=== PATIENT | male | born 1950 | race Caucasian/White ===

== ENCOUNTER → 2018-01-02 | Day surgery (SDC) | payer OTHER ==
[2017-12-30 15:45] VITALS: Ht 180.3 cm; Wt 141.4 kg
--- NOTE | 2018-01-01 08:16 | History and Physical ---
History & Physical Date Jan 01, 2018. Chief Complaint Patient presents as a 67-year-old white male with right shoulder pain he has a clinical examination is rotator cuff tear is been Nourse wants to conservative therapy including physical therapy anti-inflammatories relative rest activity modification presents for right shoulder arthroscopy with rotator cuff repair History of Present Illness The patient is a 67 year old male with complaints of Past Medical/Surgical History Medical Problems: (1) Diverticular disease of colon (2) Diverticulitis of colon (3) Essential hypertension (4) History of adenomatous polyp of colon (5) Morbid obesity (6) s/p arthroscopic surgery bilateral knees (7) s/p cholecystectomy (8) s/p colonoscopy (9) s/p ERCP (10) s/p right TKA (11) Sleep apnea Additional History Hepatic Disease: No Endocrine Disorder: No Kidney Disease: No Hypertension: No Heart Disease: No Bleeding Tendencies: No Infectious Diseases: No Other: History of sleep apnea utilizing a home CPAP Allergies Coded Allergies: BEE STING (Verified Allergy, Unknown, HIVES, 12/30/17) Cephalexin (Verified Allergy, Unknown, SEVERE SORES ON LEGS, 12/30/17) Home Medications Scheduled Amlodipine (Norvasc), 10 MG PO QAM Ascorbic Acid (Vitamin C), 500 MG PO QAM B-Complex W/ Folic Acid (Super B Complex Maxi), 1 TAB PO QAM Cetirizine (Zyrtec), 10 MG PO QAM Cholecalciferol (Vitamin D 1000 Unit), 1,000 INTER.UNIT PO QAM Ferrous Sulfate (Iron), 325 MG PO QAM Fluticasone Prop/Salmeterol (Advair Diskus 500/50 60 Dose), 1 PUFF INH BID Lisinopril (Prinivil), 40 MG PO QAM Sennosides-Docusate Sodium (Stool Softener), 1 TAB PO QAM Scheduled PRN Tramadol (Ultram), 50 MG PO Q6H PRN for RN Physical Examination Skin: warm/dry, no rash Eyes: normal inspection, EOMI, sclerae normal ENT: normal ENT inspection, pharynx normal Head: normocephalic, atraumatic Neck: supple, no adenopathy, trachea midline Respiratory/Chest: lungs clear, normal breath sounds, no respiratory distress Cardiovascular: regular rate, rhythm, no edema, no murmur Abdomen / GI: normal bowel sounds, non tender Back: normal inspection Extremities: + pertinent finding (patient presents with right shoulder rotator cuff tear for arthroscopic evaluation and fixation) Diagnosis Patient presents a very pleasant 59-year-old male with a full-thickness tear rotator cuff right shoulder fluoroscopic evaluation rotator cuff repair postoperative pain management sling immobilization rotator cuff physical therapy Plan of Treatment Plan is for right shoulder arthroscopy arthroscopic rotator cuff repair pain management DVT prophylaxis antibiotics physical therapy
[~2018-01-02] VITALS: Ht 180.3 cm; Wt 141.4 kg
[~2018-01-02] MED LIST: ADVIN50/60 INH; AMLO-114 PO; ASCO1CAP3 PO; ATROPINE SULFATE 0.1 MG/ML 5ML SYR IV PRN; B-CO-25 PO; CETI10TA84 PO; CHOL100027 PO; CLINDAMYCIN 600 MG/54 ML D5W IV ONE; CLINDAMYCIN PHOS 150 MG/ML 2 ML VIAL ONE; DEXAMETHASONE SOD INJ 4 MG/ML VIAL ONE; EpHEDrine SULFATE INJ 50 MG/ML AMP IV PRN; EpHEDrine SULFATE INJ 50 MG/ML AMP ONE; EpINEphrine HCL INJ 1 MG/ML 1ML SYRINGE ONE; FENTANYL CITRATE INJ 50 MCG/1 ML 2 ML VIAL IV PRN; FENTANYL CITRATE INJ 50 MCG/1 ML 2 ML VIAL ONE; FERR1TAB23 PO; LACTATED RINGER'S 1000ML 1,000 ML IV SCH; LIDOCAINE HCL 2% 2 ML VIAL (20MG/ML) ONE; LISI40TA PO; MIDAZOLAM HCL 1 MG/ML 2ML VIAL ONE; NURSING VERBAL MED ORDER STA; ONDANSETRON INJ 2 MG/ML 2 ML VIAL IV PRN; ONDANSETRON INJ 2 MG/ML 2 ML VIAL ONE; OXYC-57 PO; OXYCODONE/ACETAMINOPHEN 5-325 TAB PO PRN; PHENYLEPHRINE 100MCG/ML 5ML SYR ONE; PROPOFOL IV EMULSION 10 MG/ML 20 ML VIAL IV ONE; ROCURONIUM BROMIDE 10 MG/ML 5 ML VIAL IV ONE; ROPIVACAINE 0.5% 5 MG/ML 30 ML VIAL ONE; SENNTAB23 PO; SODIUM CHLORIDE 0.9% 1000ML 1,000 ML IV SCH; TRAM-10 PO
--- NOTE | 2018-01-02 07:13 | History & Physical Bridge Note ---
H&P Re-Evaluation Bridge Note: I have examined the patient, reviewed the History & Physical and in the interval since the performance of the History & Physical I have noted the following changes of clinical significance: No changes noted
[2018-01-02 09:19] VITALS: BP 160/86; PULSE 81; TEMP 36.6; O2SAT 99
--- NOTE | 2018-01-02 11:07 | [facility] Post Operative Brief Note ---
Immediate Operative Summary Operative Date Jan 02, 2018. Pre-Operative Diagnosis Full-thickness tear rotator cuff right shoulder Post-Operative Diagnosis Full-thickness tear rotator cuff right shoulder Procedure(s) Performed Right Shoulder Arthroscopy, Rotator Cuff Repair, Acromioplasty, Distal Clavicle Excision, Debridement of 50% Bicep Tear Surgeon Dr. Blaine Puentes Senior Caregiver Surgeon(s) Taqueria Manning PA-C Estimated Blood Loss 4ml Findings Consistent with Post-Op Diagnosis Specimens None per surgeon Drains None Anesthesia Type General Complication(s) none Disposition Disposition: Recovery Room / PACU
--- NOTE | 2018-01-02 11:10 | [facility] Operative Report ---
Operative Report Operative Date Jan 02, 2018. Pre-Operative Diagnosis Full-thickness tear rotator cuff right shoulder Post-Operative Diagnosis Full-thickness tear rotator cuff right shoulder acromioclavicular joint DJD subacromial impingement 50% tear biceps tendon Procedure(s) Performed Right Shoulder Arthroscopy, Rotator Cuff Repair, Acromioplasty, Distal Clavicle Excision, Debridement of 50% Bicep Tear Surgeon Dr. Blaine Puentes Linux System Admin Surgeon(s) Taqueria Manning PA-C Estimated Blood Loss 4ml Findings Patient presents with a full thickness tear rotator cuff 2 x 2 centimeters as well as a 50% tear biceps tendon and acromioclavicular joint DJD as well as is impingement syndrome large muscle conservative therapy Specimens None per surgeon Drains None Anesthesia Type General Complication(s) none Disposition Recovery Room / PACU Indications Patient presents with a full-thickness rotator cuff tear from the joint joint acromial clavicular joint DJD impingement syndrome nonresponse to conservative therapy rotator cuff tears and be 2 x 2 centimeters Description of Procedure After proper prepping draping the right shoulder region arthroscopic examination beginning in the region of the glenohumeral joint revealed any evidence of 50% tear and biceps tendon insertion is debrided to stable margin full-thickness rotator cuff tear measuring 2 x 2 centimeters noted be present in supraspinous tendon socially subacromial space was evaluated anterior- inferior crying flashers performed utilizing a bur distal clavicle excision performed removing 10 mm of distal clavicle utilizing a bur of the rotator cuff and mobilize repair back to bed of bleeding bone utilizing a double loaded heel coil 0.5 as well as a swivel lock anchor in a double row technique rotator cuff was completely repaired back to bed of bleeding bone was solid repair Lausier irrigated with copious amounts of sterile saline solution. Manner Bridges removed please note Taqueria DUKES was necessary for prepping draping retraction arm position suture management wound closure was necessary for the case I attest to the content of the Intraoperative Record and any orders documented therein. Any exceptions are noted below.
--- NOTE | 2018-01-02 11:24 | Discharge Instructions ---
Discharge Instructions Date of Service Jan 02, 2018. Visit Reason for Visit: Right Shoulder Complete Rotator Cuff Tear Discharge Discharge Diagnosis / Problem: right shoulder rotator cuff repair Discharge Goals Goal(s): Decrease discomfort, Improve function, Increase independence Activity Recommendations Activity Limitations: as noted below Shower/Bathe: keep incision dry Anesthesia . Post Anesthesia Instructions: If you have had General Anesthesia or IV Sedation: * Do not drive today. * Resume driving when surgeon permits. * Do not make important decisions or sign legal documents today. * Call surgeon for: 1. Temperature elevations greater than 101 degrees F. 2. Uncontrollable pain. 3. Excessive bleeding. 4. Persistent nausea and vomiting. 5. Medication intolerance (nausea, vomiting or rash). * For nausea and vomiting use only clear liquids such as: tea, soda, bouillon until nausea subsides, then gradually increase diet as tolerated. * If you have any concerns or questions, call your surgeon's office. If physician is unavailable and it is an emergency, call 911 or go to the nearest emergency room. . Instructions / Follow-Up Instructions / Follow-Up [facility] [place] INSTRUCTIONS: ROTATOR CUFF REPAIR SELF CARE INSTRUCTIONS A. You are permitted to loosen your sling/immobilizer to move your elbow, wrist , and hand to prevent stiffness. You should use your well arm (good arm) to assist the operated extremity when trying to raise the arm away from the body, hygiene purposes. Do NOT actively try to use/engage your shoulder muscles in operative arm at this time. You should NOT do overhead activity, lifting, or attempt to reach behind your back. B. You may/may not be instructed to start Physical Therapy upon discharge depending upon the size and difficulty of the repair. You will be provided a prescription for therapy with specific restrictions, if needed, at time of discharge. C. At 48 hours post-operatively, you may change your dressing. (Leave white steri-strips intact if present). Use band-aids and change daily. You are allowed to shower at this time and get the incision area wet, but DO NOT soak or submerge incision area in water. (No baths, swimming pools, hot tubs) D. Do NOT apply soap or any ointment/lotions directly over incision. E. You may use ice as needed to operative shoulder SPECIAL CARE INSTRUCTIONS: VERY IMPORTANT TO READ AND REVIEW A. There are a few signs you need to watch for after you are home. Call [facility] at [phone] if you experience any of the following: a. Increased severe shoulder pain. Some pain is expected especially when you exercise b. Increased swelling in your shoulder or arm; pain or swelling in either upper extremity. (Note: swelling and stiffness is normal and expected for several weeks post op, depending on type of shoulder surgery you had). c. Any fluid or drainage from the incision; redness of the incision. d. Shortness of breath or chest pain. B. Please call [facility] at [phone] if you have any questions or concerns about your operation or recovery. C. Call your physician if: a. Temperature is greater than 101 degrees (F). b. Pain is not relieved by prescribed pain medications. c. Increase drainage or redness from incision. d. Unanswered questions or concerns. D. Pain Medication: a. You will be prescribed pain medication upon discharge that should last till your first post-operative appointment. b. If you experience nausea and/or skin rash, discontinue this medication and contact our office for an alternative medication. c. Caution- narcotic pain medication can cause constipation. FOLLOW UP VISIT: Please call [facility] at [phone] to schedule a follow up appointment 10-14 days from your surgery date. Diet Recommendations Recommended Home Diet: no limitations Procedures Procedures Performed: Right Shoulder Arthroscopy, Rotator Cuff Repair, Acromioplasty, Distal Clavicle Excision, Debridement of 50% Bicep Tear Pending Studies Studies pending at discharge: no Medical Emergencies . Who to Call and When: Medical Emergencies: If at any time you feel your situation is an emergency, please call 911 immediately. . Non-Emergent Contact Non-Emergency issues call your: Primary Care Provider . . "Provider Documentation" section prepared by Taqueria Manning. . [place] Drug Monitoring Program Search Results: patient reviewed within database, no issues identified
--- NOTE | 2018-01-02 11:59 | Anesthesiology Progress Note ---
Anesthesia Post Op Note Date & Time Jan 02, 2018 at 11:59 Vital Signs Pain Intensity: 0 Vital Signs Past 12 Hours Date Time Temp Pulse Resp B/P (MAP) Pulse Ox O2 Delivery O2 Flow Rate FiO2 01/02/18 11:40 63 22 100 01/02/18 11:40 64 22 01/02/18 11:38 138/63 01/02/18 11:35 61 15 01/02/18 11:35 60 15 100 01/02/18 11:30 62 16 01/02/18 11:30 61 16 99 01/02/18 11:20 36.0 68 16 141/76 99 Oxymask 10 01/02/18 09:19 36.6 81 18 160/86 (110) 99 Room Air Notes Mental Status: alert / awake / arousable, participated in evaluation Pt Amnestic to Procedure: Yes Nausea / Vomiting: adequately controlled Pain: adequately controlled Airway Patency, RR, SpO2: stable & adequate BP & HR: stable & adequate Hydration State: stable & adequate Anesthetic Complications: no major complications apparent
[2018-01-02 12:22] VITALS: BP 128/58; PULSE 63; TEMP 36.4; O2SAT 96
[2018-01-02 12:47] VITALS: BP 135/69; PULSE 66; TEMP 36.5; O2SAT 96
== END | disposition home or self-care (01) ==
LOC: C.ACU 08:48
PROVIDERS: ATTEND Orthopaedic Surgery
DX: M75.101 Unspecified rotator cuff tear or rupture of right shoulder, not specified as traumatic (principal); M19.011 Primary osteoarthritis, right shoulder; M75.41 Impingement syndrome of right shoulder; S46.291A Other injury of muscle, fascia and tendon of other parts of biceps, right arm, initial encounter; X58.XXXA Exposure to other specified factors, initial encounter; I10 Essential (primary) hypertension; G47.33 Obstructive sleep apnea (adult) (pediatric); Z68.41 Body mass index [BMI] 40.0-44.9, adult; E66.01 Morbid (severe) obesity due to excess calories; Z96.651 Presence of right artificial knee joint; Z79.899 Other long term (current) drug therapy; Z90.5 Acquired absence of kidney; Z98.890 Other specified postprocedural states; Z98.49 Cataract extraction status, unspecified eye; Z90.49 Acquired absence of other specified parts of digestive tract; Z80.51 Family history of malignant neoplasm of kidney

== ENCOUNTER 2022-06-19 05:03 | Observation (INO) ==
--- NOTE | 2022-04-26 13:54 | PAT Medication Instructions ---
Medication Instructions Date of Service April 26, 2022 Home Medications lisinopril 40 mg tablet 40 mg PO DAILY@1200 amlodipine 10 mg tablet (Norvasc) 10 mg PO DAILY@1200 ascorbic acid (vitamin C) 500 mg tablet (Vitamin C) 500 mg PO DAILY@1200 cetirizine 10 mg tablet (Zyrtec) 10 mg PO QAM cholecalciferol (vitamin D3) 25 mcg (1,000 unit) tablet (Vitamin D3) 25 mcg PO DAILY@1200 docusate sodium 100 mg capsule (Colace) 100 mg PO DAILY@1200 ferrous sulfate 325 mg (65 mg iron) tablet 325 mg PO DAILY@1200 vitamin B complex 1 cap PO DAILY@1200 acetaminophen 500 mg tablet (Tylenol Extra Strength) 500 - 1,000 mg PO Q6H PRN albuterol sulfate 90 mcg/actuation aerosol inhaler 1 inh INHALATION QID PRN apixaban 5 mg tablet (Eliquis) 5 mg PO BID atenolol 25 mg tablet 25 mg PO DAILY@1200 lactobacillus comb no.10 20 billion cell capsule (Probiotic) 1 cell PO D AILY@1200 tramadol 50 mg tablet 50 mg PO Q8H PRN zinc 15 mg tablet 15 mg PO DAILY@1200 Continue as directed amlodipine 10 mg tablet (Norvasc) 10 mg PO DAILY@1200 atenolol 25 mg tablet 25 mg PO DAILY@1200 ASK your prescriber and surgeon apixaban 5 mg tablet (Eliquis) 5 mg PO BID (in order to get spinal anesthesia- will need to hold Eliquis/apixaban at least 72 hours prior to surgery) DO NOT take the morning of surgery lisinopril 40 mg tablet 40 mg PO DAILY@1200 ascorbic acid (vitamin C) 500 mg tablet (Vitamin C) 500 mg PO DAILY@1200 cetirizine 10 mg tablet (Zyrtec) 10 mg PO QAM cholecalciferol (vitamin D3) 25 mcg (1,000 unit) tablet (Vitamin D3) 25 mcg PO DAILY@1200 docusate sodium 100 mg capsule (Colace) 100 mg PO DAILY@1200 ferrous sulfate 325 mg (65 mg iron) tablet 325 mg PO DAILY@1200 vitamin B complex 1 cap PO DAILY@1200 lactobacillus comb no.10 20 billion cell capsule (Probiotic) 1 cell PO DAILY@1200 zinc 15 mg tablet 15 mg PO DAILY@1200 Take morning of surgery With a small sip of water, OTHERWISE NOTHING TO EAT OR DRINK AFTER MIDNIGHT: acetaminophen 500 mg tablet (Tylenol Extra Strength) 500 - 1,000 mg PO Q6H PRN (if needed) albuterol sulfate 90 mcg/actuation aerosol inhaler 1 inh INHALATION QID PRN (use if needed; please bring with you to hospital day of surgery if possible) tramadol 50 mg tablet 50 mg PO Q8H PRN (if needed) Take evening before surgery acetaminophen 500 mg tablet (Tylenol Extra Strength) 500 - 1,000 mg PO Q6H PRN (if needed) albuterol sulfate 90 mcg/actuation aerosol inhaler 1 inh INHALATION QID PRN (if needed) tramadol 50 mg tablet 50 mg PO Q8H PRN (if needed) Other Notes If you have any questions please call us at [phone] or [phone] or [phone] or [phone]
--- NOTE | 2022-04-27 12:43 | Anesthesiology Consultation ---
Date of Service April 27, 2022 Assessment & Plan (1) Encounter for pre-operative examination: - COVID screening: Per assessment on 04/27: No known COVID-19 positive contacts or current COVID-19 related symptoms. Travel screen negative. Patient reports not masking and is not vaccinated. Pt requiring admission post-operatively. Will plan for recheck with [facility] AM [facility] due to possibility that patient may have a roommate in addition to non-compliance with mask wearing in public. OR aware. [facility] order placed. - Eliquis instructions: patient made aware that in order for spinal anesthesia, Eliquis needs to be held 72 hours/3 days prior to surgery. Patient voiced understanding/will check if okay with prescriber. Chart Review Chart Review: Acceptable Risk for Surgery and Patient seen in Pre Admission Testing Teaching & Discussion Pre-Anesthesia Teaching/Discussion Notes: Instructed NPO after midnight before surgery,except medications with 15 cc of water. Medication instructions provided according to the PAT guidelines. History Surgery Operation Date: 05/30/22 08:55 Proposed Procedures p Left Total Knee Arthroplasty with possible Tibial Stem - Blaine Puentes DO Height/Weight Height: 5 ft 11 in Weight: 173.1 kg Allergies Allergy/AdvReac Type Severity Reaction Status Date / Time bee venom protein (honey bee) Allergy Unknown Hives Verified 04/27/22 12:35 cephalexin Allergy Unknown Severe Verified 04/27/22 12:35 sore legs Medications Home Medications Medication Instructions Recorded Confirmed Last Taken lisinopril 40 mg tablet 40 mg PO DAILY@1200 #0 tab 04/23/12 04/25/22 Unknown amlodipine 10 mg tablet (Norvasc) 10 mg PO DAILY@1200 #0 tab 12/30/17 04/25/22 Unknown ascorbic acid (vitamin C) 500 mg 500 mg PO DAILY@1200 #0 12/30/17 04/25/22 Unknown tablet (Vitamin C) cetirizine 10 mg tablet (Zyrtec) 10 mg PO QAM #0 tab 12/30/17 04/25/22 Unknown cholecalciferol (vitamin D3) 25 25 mcg PO DAILY@1200 #0 cap 12/30/17 04/25/22 Unknown mcg (1,000 unit) tablet (Vitamin D3) docusate sodium 100 mg capsule 100 mg PO DAILY@1200 #0 12/30/17 04/25/22 Unknown (Colace) ferrous sulfate 325 mg (65 mg 325 mg PO DAILY@1200 #0 12/30/17 04/25/22 Unknown iron) tablet vitamin B complex 1 cap PO DAILY@1200 #0 12/30/17 04/25/22 Unknown acetaminophen 500 mg tablet 500 - 1,000 mg PO Q6H PRN 04/25/22 04/25/22 Unknown (Tylenol Extra Strength) albuterol sulfate 90 mcg/actuation 1 inh INHALATION QID PRN 04/25/22 04/25/22 Unknown aerosol inhaler apixaban 5 mg tablet (Eliquis) 5 mg PO BID 04/25/22 04/25/22 Unknown atenolol 25 mg tablet 25 mg PO DAILY@1200 04/25/22 04/25/22 Unknown lactobacillus comb no.10 20 1 cell PO DAILY@1200 04/25/22 04/25/22 Unknown billion cell capsule (Probiotic) tramadol 50 mg tablet 50 mg PO Q8H PRN 04/25/22 04/25/22 Unknown zinc 15 mg tablet 15 mg PO DAILY@1200 04/25/22 04/25/22 Unknown Past Medical History Medical History Asthma Diverticulitis of colon Hx GERD (gastroesophageal reflux disease) r/t esophageal spasms Gluten intolerance Hearing deficit BL hearing aids History of COVID-19 Dx 2019 > extreme fatigue, loss taste/smell > resolved Hx of blood clots Reason on Eliquis d/t unprovoked blood clots in legs (3 years ago) Patient had 2 separate blood clots within 2 months of each other Hx of esophageal spasm About 20 years ago > no current issues Hx of iron deficiency anemia [place] r/t gluten intolerance, improvement in anemia with gluten avoidance Hx of renal cell carcinoma s/p resection of right kidney (7 years ago) No chemo or radiation Hypertension Osteoarthritis Sleep apnea Does not tolerate device Exercise / Class Metabolic Activity III < 4 Walking/Shop/Light housework Past Surgical History Surgical History H/O esophagogastroduodenoscopy History of cardiac cath 20 years ago - normal. Found out chest pain was coming from the Esophageal spasms. History of carpal tunnel release BL History of cataract surgery BL History of colonoscopy History of nephrectomy Right kidney d/t cancer PONV (postoperative nausea and vomiting) After femur fracture repair (nausea after this surgery d/t urgent surgery with recent food consumption) S/P Achilles tendon repair Left S/P cholecystectomy S/P hernia repair 3 total surgeries with 4 hernias repaired S/P nasal septoplasty Resulted in sleep apnea improvement S/P shoulder surgery Right Status post total right knee replacement Past Anesthesia History No Family Hx of Anesthesia Complications and Other (Awareness with right TKA) History of PONV No Hx of Motion Sickness and History of PONV (After femur fracture repair (nausea after this surgery d/t urgent surgery with recent food consumption)) Social History Smoking Status: Never smoker Do You Dip or Chew Tobacco: No Hx Alcohol Use: No Hx Substance Use: No Review of Systems Patient denies chest pain, shortness of breath, fever, chills, cough, wheezing, palpitations. Physical Exam Vital Signs VITALS BP 138/69 P 62 TEMP 98.2 SP02 96%RA RESP 16 PHYSICAL Full cervical extension range of motion. Full TMJ range of motion. TMD 3 finger breaths Mallampati Score 2 Dentition: full upper denture, several missing molars Lungs: clear throughout to auscultation Cardiac: regular rate and rhythm, no murmurs noted Spine: normal Carotid arteries: negative bruit Extremities: no edema Lab Results Anesthesia Preop Results Results Anesthesia Widget: PT 10.3 Seconds (9.0-12.0) 04/27/22 PTT 31.3 Seconds (21.0-31.0) H 04/27/22 INR 1.0 (0.9-1.1) 04/27/22 Blood Type A Positive 04/27/22 Antibody Screen NEGATIVE 04/27/22 Testing Laboratory Results 04/25/22 WBC 9.0 H/H 14.8/46.8 PLATELETS 227 SODIUM 141 POTASSIUM 4.5 CHLORIDE 104 CO2 25 BUN 19 CREATININE 1.1 GLUCOSE 108 TSH 2.82 HGBA1C 6.0% UA negative Electrocardiogram Date: 04/27/22 SR with first degree AVB at 61bpm. Otherwise normal ECG. *Poor data quality. Chest X-Ray Date: 04/27/22 FINDINGS: Lung volumes are normal. Linear left basilar opacity is unchanged and favor scarring or atelectasis. There is no pneumothorax or pleural effusion. Mild cardiomegaly is unchanged. Mediastinal contours are normal. There is no evidence for pulmonary edema. IMPRESSION: No acute cardiopulmonary findings. Cardiomegaly. Echocardiogram Date: 09/25/18 EF 50-55%. E/a reversal consistent with but not diagnostic for poor LV compliance. Mild RVD. Mild LAD. Mild RAD. No significant valvular disease. Stress Test Date: 12/30/18 Type: exercise 5.2 METS. 88% MPHR. Negative for ischemia by EKG criteria.
--- NOTE | 2022-05-29 14:41 | History & Physical Report ---
Date of Service May 29, 2022 date of surgery: 06/19/22 Procedure: Left Total Knee Arthroplasty with possible Tibial Stem Surgeon: Blaine Puentes Assessment & Plan (1) Arthritis of knee, left: Plan: Presents with continued left knee pain, he has failed prior cortisone inj, multiple visco injections as well as previous fluid flow injection without much relief. he has history of right TKA [place] [address] Puentes and would like to proceed with patient matched left TKA S&N at [facility] with poss tibial stem. will schedule for Iovera 2 weeks prior to surgery, will resume his Eliquis post-op. will need medical clearance prior to surgery. The risks and benefits have been discussed including, but not limited to, risk of infection, nerve injury, stiffness, loss of motion, failure to improve, etc. Reasonable outcomes and options of treatment were discussed. An explanation of appropriate alternatives to the procedure that may be advantageous were discussed and their risks and benefits, as well as the risks and benefits of not proceeding with treatment. I offered to answer any additional inquiries concerning the treatment involved. All the patient's questions were answered. The patient is agreeable, understanding of the treatment plan and alternatives, and wishes to proceed with the treatment plan. History of Present Illness Chief Complaint: left knee pain Primary Care Provider: NO PCP Florencio is a 71 year old male who complains of left knee pain, presents for pre- op evaluation prior to a left total knee replacement by Dr Puentes at [facility]. He complains of pain, decreased range of motion, instability and stiffness in his left knee. Currently the patient states that the symptoms are moderate-severe and is described as aching, sharp and throbbing. currently 7/10. His symptoms are aggravated by ascending stairs, daily activities, first steps while awake walking. He is currently on Eliquis and unable to take NSAIDs. He has been treated with previous cortisone, visco, and fluid flow injections in the past without much relief. He had his right knee replaced by Dr Puentes in 2011. Allergies Allergy/AdvReac Type Severity Reaction Status Date / Time bee venom protein (honey bee) Allergy Unknown Hives Verified 04/27/22 12:35 cephalexin Allergy Unknown Severe Verified 04/27/22 12:35 sore legs Home Medications Medication Instructions Recorded Confirmed Type lisinopril 40 mg tablet 40 mg PO DAILY@1200 #0 tab 04/23/12 04/25/22 History amlodipine 10 mg tablet (Norvasc) 10 mg PO DAILY@1200 #0 tab 12/30/17 04/25/22 History ascorbic acid (vitamin C) 500 mg 500 mg PO DAILY@1200 #0 12/30/17 04/25/22 History tablet (Vitamin C) cetirizine 10 mg tablet (Zyrtec) 10 mg PO QAM #0 tab 12/30/17 04/25/22 History cholecalciferol (vitamin D3) 25 25 mcg PO DAILY@1200 #0 cap 12/30/17 04/25/22 History mcg (1,000 unit) tablet (Vitamin D3) docusate sodium 100 mg capsule 100 mg PO DAILY@1200 #0 12/30/17 04/25/22 History (Colace) ferrous sulfate 325 mg (65 mg 325 mg PO DAILY@1200 #0 12/30/17 04/25/22 History iron) tablet vitamin B complex 1 cap PO DAILY@1200 #0 12/30/17 04/25/22 History acetaminophen 500 mg tablet 500 - 1,000 mg PO Q6H PRN 04/25/22 04/25/22 History (Tylenol Extra Strength) albuterol sulfate 90 mcg/actuation 1 inh INHALATION QID PRN 04/25/22 04/25/22 History aerosol inhaler apixaban 5 mg tablet (Eliquis) 5 mg PO BID 04/25/22 04/25/22 History atenolol 25 mg tablet 25 mg PO DAILY@1200 04/25/22 04/25/22 History lactobacillus comb no.10 20 1 cell PO DAILY@1200 04/25/22 04/25/22 History billion cell capsule (Probiotic) tramadol 50 mg tablet 50 mg PO Q8H PRN 04/25/22 04/25/22 History zinc 15 mg tablet 15 mg PO DAILY@1200 04/25/22 04/25/22 History Past Med/Surg History Medical History Asthma Diverticulitis of colon Hx GERD (gastroesophageal reflux disease) r/t esophageal spasms Gluten intolerance Hearing deficit BL hearing aids History of COVID-19 Dx 2020 > extreme fatigue, loss taste/smell > resolved Hx of blood clots Reason on Eliquis d/t unprovoked blood clots in legs (3 years ago) Patient had 2 separate blood clots within 2 months of each other Hx of esophageal spasm About 20 years ago > no current issues Hx of iron deficiency anemia [place] r/t gluten intolerance, improvement in anemia with gluten avoidance Hx of renal cell carcinoma s/p resection of right kidney (7 years ago) No chemo or radiation Hypertension Osteoarthritis Sleep apnea Does not tolerate device Surgical History H/O esophagogastroduodenoscopy History of cardiac cath 20 years ago - normal. Found out chest pain was coming from the Esophageal spasms. History of carpal tunnel release BL History of cataract surgery BL History of colonoscopy History of nephrectomy Right kidney d/t cancer PONV (postoperative nausea and vomiting) After femur fracture repair (nausea after this surgery d/t urgent surgery with recent food consumption) S/P Achilles tendon repair Left S/P cholecystectomy S/P hernia repair 3 total surgeries with 4 hernias repaired S/P nasal septoplasty Resulted in sleep apnea improvement S/P shoulder surgery Right Status post total right knee replacement Social History Smoking Status: Never smoker Second Hand Exposure: No; Hx Alcohol Use: No Hx Substance Use: No Preferred Language: Swedish Communication Ability: Effective Hospice Nurse Required: No Beliefs That Will Affect Care: None Current Living Situation: Spouse Feels Safe at Home: Yes Assistive Devices: BiPap, CPAP, Denture - Upper, Glasses and Hearing Aid - Bilateral Review of Systems Review of Systems: All systems reviewed & are unremarkable except as noted in HPI & below Constitutional: no fever, no chills and no sweats Respiratory: no cough and no dyspnea Cardiovascular: no chest pain, no dyspnea and no orthopnea Gastrointestinal: no abdominal pain, no nausea and no vomiting Musculoskeletal: as per Subjective / HPI Physical Exam Physical Exam: HT: 5ft 11in WT: 173.7kg Constitutional: WD/WN, vitals as above no acute distress Respiratory: normal respiratory effort, lungs clear to auscultation no respiratory distress, no labored breathing and does not use accessory muscles Cardiovascular: RRR, no murmur, no edema Gastrointestinal (Abdomen): normal bowel sounds, soft, nontender, no hepatosplenomegaly Musculoskeletal: Knee: + knee abnormal to inspection (LEFT KNEE), + effusion (+1 effusion), + limited ROM of knee (ROM 0/3/100), + knee ROM with crepitation, + joint line tenderness (medial joint line) and + Karissa's sign positive; no deformity, no skin erythema, no ecchymosis, no valgus laxity, no varus laxity, anterior drawer test negative, Charo's sign negative and pivot shift test negative Results & Data Results & Data ([facility]) Diagnostic Findings Left Knee X-ray: left knee series confirms degenerative changes to the left knee, greatest medial compartments and patellofemoral joint, showing joint space narrowing, osteophyte formation and subchondral sclerosis. no acute bony pathology noted.
[2022-06-19] MEDS ORDERED: ROPIVACAINE 0.5% HCL/PF 150 MG, BUPIVACAINE 0.75% MPF 20 ML, EPINEPHrine 30MG/30ML (OR ... INSTIL SCH (06:00)
[2022-06-19] MEDS ORDERED: METOCLOPRAMIDE HCL 10 MG TABLET PO SCH (06:00)
[2022-06-19] MEDS ORDERED: LR 500ML BOLUS, THEN 15ML/HR IV SCH (06:00)
[2022-06-19] MEDS ORDERED: dexAMETHasone 4 MG TAB PO SCH (06:00)
[2022-06-19] MEDS ORDERED: TRANEXAMIC ACID 1,000 MG **IV Pre-op IV SCH (06:00)
[2022-06-19] MEDS ORDERED: VANCOMYCIN HCL 2,000 MG in SODIUM CHLORIDE 0.9% 500 ML IV SCH (06:00)
[2022-06-19] MEDS ORDERED: FAMOTIDINE 20 MG TAB PO SCH (06:00)
[2022-06-19] MEDS ORDERED: ACETAMINOPHEN 500 MG TAB PO SCH (06:00)
[2022-06-19] MEDS ORDERED: GABAPENTIN 300 MG CAP PO SCH (06:00)
[2022-06-19] MEDS ORDERED: CeleBREX 200 MG CAP PO SCH (06:00)
[2022-06-19] MEDS ORDERED: TRANEXAMIC ACID 1,000 MG **IV Intra-op IV SCH (06:00)
[2022-06-19] MEDS ORDERED: ROPIVACAINE 0.5% 5 MG/ML 30 ML VIAL ONE (06:22)
[2022-06-19] MEDS ORDERED: EPINEPHrine INJ 1 MG/ML AMP ONE (06:22)
[2022-06-19] MEDS ORDERED: BUPIVACAINE 0.5 % 5 MG/1 ML PF 10ML VIAL ONE (06:22)
[2022-06-19] MEDS ORDERED: MIDAZOLAM HCL 1 MG/ML 2ML VIAL ONE ×2 (06:51→07:26)
[2022-06-19] MEDS ORDERED: fentaNYL citrate 100 MCG/2 ML VIAL ONE ×2 (06:51→07:57)
[2022-06-19] MEDS ORDERED: PROPOFOL IV EMULSION 10 MG/ML 20 ML VIAL IV ONE (06:51)
[2022-06-19] MEDS ORDERED: fentaNYL citrate 100 MCG/2 ML VIAL IV PRN (06:53)
[2022-06-19] MEDS ORDERED: LABETALOL HCL IV 5 MG/ML 20ML IV PRN (06:53)
[2022-06-19] MEDS ORDERED: ONDANSETRON INJ 2 MG/ML 2 ML VIAL IV PRN ×2 (06:53→09:11)
[2022-06-19] MEDS ORDERED: PHENYLEPHRINE 100MCG/ML 5ML SYR IV PRN (06:53)
[2022-06-19] MEDS ORDERED: ATROPINE SULFATE 0.1 MG/ML 10ML SYR IV PRN (06:53)
[2022-06-19] MEDS ORDERED: HYDROmorphone INJ 1 MG/ML SYRINGE IV PRN ×2 (06:53→09:11)
[2022-06-19] MEDS ORDERED: ePHEDrine sulfate 50 MG/ML AMP IV PRN (06:53)
[2022-06-19] MEDS ORDERED: ORTHO JOINT ANESTHETIC ONE (07:11)
--- NOTE | 2022-06-19 07:13 | History & Physical Bridge Note ---
Date of Service June 19, 2022 History & Physical Bridge Note I have examined the patient, reviewed the History & Physical and in the interval since the performance of the History & Physical I have noted the following changes of clinical significance: no changes noted
[2022-06-19] MEDS ORDERED: ePHEDrine sulfate 50 MG/ML SYR ONE (07:48)
--- NOTE | 2022-06-19 08:46 | Operative Report ---
Post Operative Report Pre & Post Diagnosis Operation Date: 06/19/22 07:15 Pre-Op Diagnosis: Left Knee Osteoarthritis with morbid obesity Post-Op Diagnosis: Left Knee Osteoarthritis with morbid obesity BMI 53.8 174 kg I identified the patient and participated in the time-out.: Yes Procedure Operation Date: 06/19/22 07:15 Actual Procedures p Left Total Knee Arthroplasty with Tibial Stem(Left) utilizing [employer] NephRestoMesto jouralice 2 patient matched total knee arthroplasty size femur 6 tibia 5 with 70 mm stem polyten patella 35- Blaine Puentes DO Surgeon Blaine Puentes DO Steel Post Installer ROSELINE Norton Estimated Blood Loss 10 Findings Consistent with Post-Op Diagnosis Patient presents with severe end-stage tricompartmental degenerative joint disease no response to conservative management for left total knee arthroplasty patient is got eburnated bone on bone subchondral sclerosis marginal osteophytes with cartilage loss and a moderate to large effusion Specimens Bone and cartilage Drains Medium bore Hemovac Anesthesia Type MAC Spinal Regional Complications none Disposition Accompanied Patient To Recovery: No Disposition: Recovery Room Indications Patient presents with severe end-stage tricompartmental DJD failed attempted conservative management clinic physical therapy anti-inflammatories relative rest activity modification corticosteroid injection viscosupplementation above intraoperative findings were noted Description of Procedure After proper prepping and draping of the left lower extremity anterior midline incision was made over the region of the extensor extensor mechanism after meticulous hemostasis was obtained and maintained in subcutaneous tissues a medial parapatellar incision was made The patella was subluxed lateralward the medial lateral gutter were cleaned from any hypertrophic synovitis and scar tissue of the distal femoral block was placed and the distal femoral osteotomy cut was made subsequently the chamfers anterior and posterior osteotomy cuts were made utilizing the 4-in-1 block the tibia was subsequently subluxed anteriorward medial and ateral meniscal remnants were excised in their entirety remnants of the anterior and posterior cruciate ligaments were excised in their entirety excellent exposure of the proximal tibia was obtained the tibial osteotomy guide was placed on the proximal tibial osteotomy cut was made once again the knee was irrigated with copious amounts of sterile saline solution the patella was subsequently everted lateralward thickened scar tissue around the patella was removed the patella was subsequently cut utilizing a freehand technique and was drilled prepared for final preparation and placement of gregory lla socially flexion-extension gaps were checked and the equal and symmetric trials were placed to the appropriate femoral and tibial trials with poly-spacer being placed for equal flexion and extension gaps and full range of motion including extension to 0 and flexion to 140 the trial components after having been taken to recovery range of motion was subsequently removed meticulous hemostasis was obtained and maintained subsequently a knee block injection of joint cocktail including ropivacaine 0.5% 150 mg. Bupivacaine 0.5% epinephrine 1-200,030 mL's toradol 30 mg dexamethasone 4 mg ketamine 10 mg clonidine 100 micrograms normal saline solution 30 mg was infiltrated into the soft tissues of the posterior knee medial lateral gutters and periosteal synovium special attention was paid to protect neurovascular structures at all times subsequently trial components having been removed the knee was irrigated with sterile saline solution. debris was removed the proximal tibia was subsequently prepared and was made ready for the placement of the tibial component tibial component was also cemented and tamped into position the femoral component was subsequently placed and cemented in the position the patellar component was subsequently cemented in position because hemostasis once again obtained and maintained wound having been thoroughly irrigated with debridement and debridement lavage was performed as well as a medial parapatellar incision closed with #1 Vicryl in interrupted fashion subcutaneous was closed with #2 Vicryl skin was closed with skin clips. PA-C was necessary for prepping and drapping as well as wound closure of deep fascia Sub cutaneous tissue and skin and was necessary for the case. A sterile compressive dressing was placed patient was taken to recovery in stable condition of report dictated by Dhaval I attest to the content of the Intraoperative Record and any orders documented therein. Any exceptions are noted below.Due to the complex nature of the procedure, the entire surgery was performed with the operational assistance of Phong Norton patient is 1 7 4 kg with a BMI 53.8. The patient's habitus did contribute to significant technical difficulty requiring extra time. Additional help was necessary in order to position the patient safely. The use of specialized (longer, deeper) retractors and/or instruments were needed. Due to this, the procedure took 20 minutes longer than the standard total knee arthroplasty."]. The assistant manager retail, under direct supervision, was involved in the actual performance of all aspects of the surgical procedure including hemostasis, tissue retraction and incision, instrument management, patient positioning, and wound closure. I attest to the content of the Intraoperative Record and any orders documented therein. Any exceptions are noted below.
[2022-06-19] MEDS ORDERED: ONDANSETRON INJ 2 MG/ML 2 ML VIAL ONE (09:00)
[2022-06-19] MEDS ORDERED: bisacodyL 10 MG SUPP PR PRN (09:11)
[2022-06-19] MEDS ORDERED: MAGNESIUM HYDROXIDE SUSP 30 ML UDC PO PRN (09:11)
[2022-06-19] MEDS ORDERED: NALOXONE HCL 0.4 MG/1 ML VIAL/CARP IV PRN (09:11)
[2022-06-19] MEDS ORDERED: diphenhydrAMINE Capsule 25 MG CAP PO PRN (09:11)
[2022-06-19] MEDS ORDERED: METOCLOPRAMIDE HCL INJ 5 MG/ML 2 ML VIAL IV PRN (09:11)
--- NOTE | 2022-06-19 09:32 | Anesthesiology Progress Note ---
Date of Service June 19, 2022 Anesthesia Post Procedure Vital Signs Vital Signs: Temp Pulse Pulse Resp BP BP Pulse Ox 06/19/22 09:25 66 17 142/63 H 96 06/19/22 09:15 69 17 159/61 H 98 06/19/22 09:09 36.0 C L 67 20 162/67 H 97 06/19/22 05:58 36.8 C 80 20 140/88 95 O2 Del Method 06/19/22 09:25 Room Air 06/19/22 09:15 Room Air 06/19/22 09:09 Room Air 06/19/22 05:58 Room Air Pain Intensity Left Knee: Pain Intensity: 1 Transfer of Care Handoff Completed per policy Notes Mental Status: alert / awake / arousable Patient Amnestic to Procedure: Yes Nausea / Vomiting: adequately controlled Pain: adequately controlled Airway Patency, RR, SpO2: stable & adequate BP & HR: stable & adequate Hydration State: stable & adequate Neuraxial Anesthesia: was administered and sensory block is resolving Anesthetic Complications: no major complications apparent and Pt Satisfied with anesthetic care
[2022-06-19] MEDS ORDERED: ALBUTEROL HFA 8 GM INHALER INH PRN (09:48)
[2022-06-19] MEDS: SODIUM CHLORIDE 0.9% 1000ML 1,000 ML IV SCH ×2 (09:52→20:18)
--- NOTE | 2022-06-19 10:25 | XRay Report ---
XR knee LT 1 or 2V routine CLINICAL HISTORY: Postoperative evaluation. COMPARISON: None FINDINGS: Alignment of the total left knee arthroplasty is anatomic. There is no periprosthetic frac ture or unexpected radiopaque foreign body. There are skin fariba. Surgical drains are in place. IMPRESSION: Expected findings following total left knee arthroplasty. ACT 112: Negative or not required by law. Electronically signed by: Philip Plummer M.D. 06/19/2022 10:24 AM
[2022-06-19] MEDS: ZINC SULFATE 220 MG CAPSULE PO SCH (11:48)
[2022-06-19] MEDS: FERROUS SULFATE 325 MG TAB PO SCH (11:49)
[2022-06-19] MEDS: ADVANCED PROBIOTIC 1250 MG CAPSULE PO SCH (11:49)
[2022-06-19] MEDS: lisinopril 40 MG TAB PO SCH (11:49)
[2022-06-19] MEDS: VITAMIN B COMPLEX TAB PO SCH (11:49)
[2022-06-19] MEDS: ASCORBIC ACID 500 MG TAB PO SCH (11:50)
[2022-06-19] MEDS: oxyCODONE HCL IR 5 MG TAB (IMMEDIATE RELEASE) PO PRN (11:50)
[2022-06-19] MEDS: amLODIPine BESYLATE 5 MG TAB PO SCH (11:50)
[2022-06-19] MEDS: CHOLECALCIFEROL 1,000 UNITS 25 MCG TAB PO SCH (11:50)
[2022-06-19] MEDS: ATENOLOL 25 MG TABLET PO SCH (11:50)
[2022-06-19] MEDS ORDERED: DOCUSATE SODIUM 100 MG CAP PO SCH (12:00)
[2022-06-19] MEDS: ACETAMINOPHEN 500 MG TAB PO SCH ×2 (13:31→21:33)
[2022-06-19] MEDS: CLINDAMYCIN 600 MG in DEXTROSE 5% 50 ML IV SCH (16:14)
[2022-06-19] MEDS ORDERED: SENNA 8.6 MG TAB PO SCH (21:00)
[2022-06-19] MEDS: DOCUSATE SODIUM 100 MG CAP PO SCH (21:33)
[2022-06-20] MEDS: CLINDAMYCIN 600 MG in DEXTROSE 5% 50 ML IV SCH (00:36)
[2022-06-20] MEDS: ACETAMINOPHEN 500 MG TAB PO SCH (06:10)
[2022-06-20 06:14] LABS: Hematocrit (blood only) 39.5 % (40.1-51.0); Hemoglobin 12.9 g/dl (14.0-18.0); Mean Corpuscular Hemoglobin 28.5 pg (25.0-34.0); Mean Corpuscular Hgb Conc 32.7 g/dL (32.0-36.0); Mean Corpuscular Volume 87.2 fL (80.0-100.0); Mean Platelet Volume 11.6 fL (9.4-12.4); Platelet Count 193 K/uL (130-400); RDW Coefficient of Variation 14.3 % (11.5-14.5); Red Blood Count 4.53 M/uL (4.63-6.08)
[2022-06-20 06:48] LABS: BUN Creatinine Ratio 22.1 (10-20); Calcium 8.4 mg/dl (8.5-10.1); Creatinine Clr Calc Pharmacy 114.5 ml/min; Est GFR (African American) 92.3 ml/min; Est GFR (Non-African American) 79.7 ml/min; Potassium 4.2 mmol/L (3.5-5.1)
--- NOTE | 2022-06-20 07:26 | Orthopedic Progress Note ---
Date of Service June 20, 2022 Assessment & Plan (1) Arthritis of knee, left: Plan: Postop day #1 left total knee -PT/OT -DVT prophylaxis SCDs, teds, Eliquis 5 mg twice daily -Pain management as written -AM labs as above -Discharge planning plan on discharge home with outpatient therapy likely today as long as does well with PT. Admission and Anticipated Discharge Date Admission Date: June 19, 2022 Subjective Patient is postop day 1 left total knee. He is doing well this morning. Pain is minimal. No other complaints. Review of Systems Review of Systems: All systems reviewed & are unremarkable except as noted in Subjective Physical Exam Physical Exam: Left knee: Dressing is clean, dry, intact. No calf tenderness. Toes mobile with good dorsiflexion. Distal neurovascular status and sensation intact. Constitutional: WD/WN, vitals as above Results & Data ([facility]) Vital Signs (Past 12 Hours) Vital Signs Temp Pulse Resp BP Pulse Ox O2 Del Method 06/20/22 07:21 36.5 C 62 16 162/72 H 93 Room Air 06/20/22 04:10 36.4 C L 51 L 16 157/74 H 96 06/19/22 21:22 36.6 C 56 L 18 149/78 H 95 Laboratory Results Lab Results 06/19/22 06/20/22 06/20/22 Range/Units 05:24 05:58 05:58 WBC 15.80 H (4.8-10.8) K/ul RBC 4.53 L (4.63-6.08) M/uL Hgb 12.9 L (14.0-18.0) g/dl Hct 39.5 L (40.1-51.0) % MCV 87.2 (80.0-100.0) fL MCH 28.5 (25.0-34.0) pg MCHC 32.7 (32.0-36.0) g/dL RDW Std Deviation 46.0 (36.4-46.3) fL RDW Coeff of [place] 14.3 (11.5-14.5) % Plt Count 193 (130-400) K/uL MPV 11.6 (9.4-12.4) fL Sodium 137 (136-145) mmol/L Potassium 4.2 (3.5-5.1) mmol/L Chloride 106 (98-107) mmol/L Carbon Dioxide 24 (21-32) mmol/L Anion Gap 7 (3-11) BUN 21 (6-23) mg/dl Creatinine 0.95 (0.6-1.4) mg/dl Est Cr Clr Drug Dosing 114.5 ml/min Est GFR ( Amer) 92.3 ml/min Est GFR (Non-Af Amer) 79.7 ml/min BUN/Creatinine Ratio 22.1 H (10-20) Glucose 130 H (70-99(Fasting)) mg/dl Calcium 8.4 L (8.5-10.1) mg/dl SARS-CoV-2, RNA, NAAT NEGATIVE (NEGATIVE)
[2022-06-20] MEDS: DOCUSATE SODIUM 100 MG CAP PO SCH (08:39)
[2022-06-20] MEDS: oxyCODONE HCL IR 5 MG TAB (IMMEDIATE RELEASE) PO PRN ×2 (08:40→13:03)
[2022-06-20] MEDS ORDERED: MULTIVITAMIN TAB PO SCH (09:00)
[2022-06-20] MEDS ORDERED: CETIRIZINE HCL 10 MG TABLET PO SCH (09:00)
[2022-06-20] MEDS ORDERED: APIXABAN 5 MG TABLET PO SCH (09:00)
[2022-06-20] MEDS: CHOLECALCIFEROL 1,000 UNITS 25 MCG TAB PO SCH (11:41)
[2022-06-20] MEDS: VITAMIN B COMPLEX TAB PO SCH (11:42)
[2022-06-20] MEDS: ATENOLOL 25 MG TABLET PO SCH (11:42)
[2022-06-20] MEDS: ASCORBIC ACID 500 MG TAB PO SCH (11:43)
[2022-06-20] MEDS: FERROUS SULFATE 325 MG TAB PO SCH (11:43)
[2022-06-20] MEDS: ZINC SULFATE 220 MG CAPSULE PO SCH (11:43)
[2022-06-20] MEDS: ADVANCED PROBIOTIC 1250 MG CAPSULE PO SCH (11:43)
[2022-06-20] MEDS: lisinopril 40 MG TAB PO SCH (11:44)
[2022-06-20] MEDS: amLODIPine BESYLATE 5 MG TAB PO SCH (11:44)
--- NOTE | 2022-06-20 17:54 | Discharge Summary ---
Date of Service date of discharge: June 20, 2022 date of admission: 06-19-22 Admission HPI Per Admitting Provider Florencio is a 71 year old male who complains of left knee pain, presents for pre- op evaluation prior to a left total knee replacement by Dr Puentes at [facility]. He complains of pain, decreased range of motion, instability and stiffness in his left knee. Currently the patient states that the symptoms are moderate-severe and is described as aching, sharp and throbbing. currently 06/03. His symptoms are aggravated by ascending stairs, daily activities, first steps while awake walking. He is currently on Eliquis and unable to take NSAIDs. He has been treated with previous cortisone, visco, and fluid flow injections in the past without much relief. He had his right knee replaced by Dr Puentes in 2011. Principal Diagnosis left knee arthritis Discharge Exam Musculoskeletal left knee: NVDI, calf SNT, negative khanh sign. DP palpable, able to wiggle toes/ankle movement without difficulty. DASHAWN dressing clean dry and intact. expected post-operative bruising noted. Discharge Data Allergies Allergy/AdvReac Type Severity Reaction Status Date / Time cephalexin Allergy Intermediate Severe Verified 06/19/22 05:37 sore legs bee venom protein (honey bee) Allergy Mild Hives Verified 06/19/22 05:37 Procedures Performed Operation Date: 06/19/22 07:15 Actual Procedures p Left Total Knee Arthroplasty with Tibial Stem(Left) - Blaine Puentes DO Ordered Studies 06/19/22 05:00 US - OR guided needle placemen Routine Hospital Course (1) Arthritis of knee, left: Postop day #1 left total knee -PT/OT -DVT prophylaxis SCDs, teds, Eliquis 5 mg twice daily -Pain management as written -AM labs as above -Discharge planning plan on discharge home with outpatient therapy likely today as long as does well with PT. Total Time Total Time Spent Total Time Spent (In Minutes): 20 Discharge Plan Discharge Items Patient Disposition: Home - Self-Care Reason For Visit: Left Knee Osteoarthritis Discharge Diagnosis: LEFT TOTAL KNEE REPLACEMENT Activity: Per Instructions section Lifting: Wait until after follow-up appointment Weightbearing Comment: WBAT WITH WALKER Non-emergency contact: Surgeon Call non-emergency contact if: you have any medication questions, your temperature is above 101, your wound has increased redness, your wound has increased drainage and your wound pain has increased Follow-up/Referrals: Max Tolliver MD [Primary Care Provider] - Diet: Regular Addtl Attending Provider Instructions: ACTIVITY RECOMMENDATIONS: SELF CARE INSTRUCTIONS AFTER TOTAL KNEE REPLACEMENT A. You may need to continue a physical therapy program after discharge from the hospital. There are several options available to you. Your doctor will assist you in selecting the best one for you. 1. An out-patient facility 2 to 3 times a week for therapy or home therapy. 2. Continue working on all exercises taught to you in the hospital. Your goals should be to increase bending of your knee to 90 degrees and beyond and to fully straighten your knee. B. You may progress at your own pace from walking with a walker or crutches to a cane; then to no assistive devices. C. Make walking a part of your daily routine. Be up as much as comfortable with rest periods throughout the day. Rest with leg elevation is very important. Use the ice wrap frequently for the first 3-4 weeks. D. There are no restrictions on activities. You may ride in a car, shop, participate in systems lead and all social activities. E. Wear the long elastic stockings (LIDIA hose) 20 hours a day for 2 weeks after surgery. They can be removed several times a day for laundering and for a bath. F. You may shower, no tub baths until cleared by your doctor. SPECIAL CARE INSTRUCTIONS: VERY IMPORTANT TO READ AND REVIEW A. There are a few signs you need to watch for after you are home. Call [facility] if you notice any of the followin. Increased severe knee pain. Some pain is expected especially when you exercise. 2. Increased swelling in your leg or knee; pain or swelling of the calf muscle in either lower leg. 3. Any fluid drainage from the incision. 4. Shortness of breath or chest pain. B. Please call [facility] at if you have any concerns or questions about your operation or recovery. The doctor or his nurse will return your call promptly. C. You must take antibiotics before dental work, bladder, bowel or other surgery. Your doctor will provide you with a permanent care to carry describing this precaution. IMPORTANT: * HIGH RISK PATIENTS MAY BE PRESCRIBED A STRONGER BLOOD THINNER. THIS WILL BE PROVIDED AT DISCHARGE. * CALL IF INCREASED PAIN, REDNESS, DRAINAGE OR FEVER GREATER THAT 101. * WEAR LIDIA HOSE 20 HOURS PER DAY FOR 2 WEEKS. * DASHAWN Dressing- This is a large suction dressing covering your incision. This will help pull any excess drainage from the wound and allow your incision to heal properly. You may shower with this if you can keep the unit outside of the shower. If any bleeding or leakage is noted please call your doctor's office. This will remain on your incision for 7 days and then should be removed. This can be done yourself or by the home nursing staff if applicable. The entire unit is disposable once removed. Once removed, keep incision clean and dry. If redness or drainage is noted, please call your surgeon. IF INCISION IS LEAKING THROUGH DRESSING, CALL THE OFFICE . FOLLOW UP VISIT: If appointment is not already scheduled: Please call [facility] to make a follow-up appointment for 2 weeks after your surgery at . Stand-Alone Forms: My [facility] [employer], Smoking Cessation Medications and DC Order Prescriptions: New acetaminophen [Tylenol Extra Strength] 500 mg Tablet 1,000 mg PO Q8 Qty: 60 0RF oxycodone 5 mg Tablet 5 - 10 mg PO .Q4h-6h MDD 6 PRN (Reason: pain) Qty: 30 0RF Rx Instructions: Ongoing therapy, Dr. Austin supervising Continued lisinopril 40 mg Tablet 40 mg PO DAILY@1200 Qty: 0 ascorbic acid (vitamin C) [Vitamin C] 500 mg Tablet 500 mg PO DAILY@1200 Qty: 0 amlodipine [Norvasc] 10 mg Tablet 10 mg PO DAILY@1200 Qty: 0 docusate sodium [Colace] 100 mg Capsule 100 mg PO DAILY@1200 Qty: 0 cetirizine [Zyrtec] 10 mg Tablet 10 mg PO QAM Qty: 0 ferrous sulfate 325 mg (65 mg iron) Tablet 325 mg PO DAILY@1200 Qty: 0 vitamin B complex Capsule 1 cap PO DAILY@1200 Qty: 0 cholecalciferol (vitamin D3) [Vitamin D3] 25 mcg (1,000 unit) Tablet 25 mcg PO DAILY@1200 Qty: 0 zinc 15 mg Tablet 15 mg PO DAILY@1200 atenolol 25 mg Tablet 25 mg PO DAILY@1200 Eliquis 5 mg Tablet 5 mg PO BID Probiotic 20 billion cell Capsule 1 cell PO DAILY@1200 albuterol sulfate 90 mcg/actuation Hfa Aerosol Inhaler 1 inh INHALATION QID PRN (Reason: Shortness Of Breath Or Wheezing) Discontinued tramadol 50 mg Tablet 50 mg PO Q8H PRN (Reason: Pain) acetaminophen [Tylenol Extra Strength] 500 mg Tablet 500 - 1,000 mg PO Q6H PRN (Reason: Pain) Discharge Orders: Discharge Order (Routine); Ordered 06/20/22 Ordered By: Jono Nayak Admission Data Admit Date/Time: 06/19/22 09:11 Attending Provider: Blaine Puentes Admit Provider: Blaine Puentes Primary Care Provider: Max Tolliver Other Interventions: Discharge Summary Assessment (RN) Last Done: 06/20/22 12:01
== END 2022-06-20 13:09 | disposition home or self-care (01) ==
LOC: 3E 05:03 → ASU 05:03